=== PATIENT | female | born 1995 | race Caucasian/White ===

== ENCOUNTER 2021-02-23 00:33 | Emergency (ER) | payer OTHER ==
[~2021-02-23] VITALS: Ht 167.6 cm; Wt 63.5 kg
[2021-02-23] MEDS ORDERED: INTESTINEX680 M2 PO (03:00)
[2021-02-23] MEDS ORDERED: AMOX-CLAV 875-1 EACH PO (03:00)
[2021-02-23] MEDS ORDERED: NAPROXEN375 MG PO (03:00)
== END 2021-02-23 03:05 | disposition home or self-care (01) ==
LOC: ER 00:33 → EDBD 00:47 → ER 00:47
DX: S81.821A Laceration with foreign body, right lower leg, initial encounter (principal); W45.8XXA Other foreign body or object entering through skin, initial encounter; Y93.89 Activity, other specified; Y92.098 Other place in other non-institutional residence as the place of occurrence of the external cause; Y99.8 Other external cause status

== ENCOUNTER 2021-03-04 08:36 | Emergency (ER) | payer OTHER ==
[~2021-03-04] VITALS: Ht 167.6 cm; Wt 65.8 kg
[~2021-03-04 08:36] MED LIST: AMOX-CLAV 875-1 EACH PO; INTESTINEX680 M2 PO; NAPROXEN375 MG PO
== END 2021-03-04 11:29 | disposition home or self-care (01) ==
LOC: ER 08:36
DX: Z48.02 Encounter for removal of sutures (principal)

== ENCOUNTER 2021-06-27 05:15 | Day surgery (SDC) | payer OTHER ==
[~2021-06-27 05:15] MED LIST changes: +WELLBUTRIN SR150 MG PO
== END 2021-06-27 10:45 | disposition home or self-care (01) ==
LOC: CIR.AMB 05:15
PROVIDERS: ATTEND Specialist
DX: D17.21 Benign lipomatous neoplasm of skin and subcutaneous tissue of right arm (principal); Z20.822 Contact with and (suspected) exposure to COVID-19

== ENCOUNTER 2021-10-26 22:54 | Emergency (ER) | payer OTHER ==
[~2021-10-26] VITALS: Ht 167.6 cm; Wt 65.8 kg
[2021-10-26] MEDS ORDERED: RITALIN5 M1 (23:32)
[2021-10-27] MEDS ORDERED: LEVSIN/SL0.125 MG SL (03:58)
[2021-10-27] MEDS ORDERED: PEPCID AC20 MG PO (03:58)
[2021-10-27] MEDS ORDERED: CIPRO500 MG PO (03:58)
== END 2021-10-27 04:05 | disposition home or self-care (01) ==
LOC: ER 22:54
DX: K52.9 Noninfective gastroenteritis and colitis, unspecified (principal); R10.9 Unspecified abdominal pain

== ENCOUNTER 2025-06-18 17:16 | Emergency (ER) | payer OTHER ==
[~2025-06-18] VITALS: Ht 170.2 cm; Wt 67.1 kg
[~2025-06-18 17:16] MED LIST changes: +CIPRO500 MG PO; +LEVSIN/SL0.125 MG SL; +PEPCID AC20 MG PO; +RITALIN5 M1
[2025-06-18] MEDS ORDERED: KETOROLAC TROMETHAMINE 60 MG VIAL IM ONE ×2 (18:15→19:19)
[2025-06-18] MEDS ORDERED: LIDOCAINE HCL 1% 10ML VIAL PERCUT ONE (18:15)
[2025-06-18] MEDS ORDERED: TETANUS & DIPHTHERIA TOX,ADULT 0.5 ML VIAL IM ONE (18:15)
[2025-06-18] MEDS ORDERED: CEFTRIAXONE SODIUM 1,000 MG VIAL IM ONE (18:15)
[2025-06-18] MEDS ORDERED: LIDOCAINE HCL 1% 10ML VIAL ONE ×2 (18:41→19:22)
[2025-06-18] MEDS ORDERED: CEFTRIAXONE SODIUM 1,000 MG VIAL ONE (19:20)
[2025-06-18] MEDS ORDERED: DIPHTH,PERTUSS(ACELL),TET VAC 0.5 ML SYRINGE IM ONE (19:20)
[2025-06-18] MEDS ORDERED: CEFUROXIME500 MG PO (19:46)
[2025-06-18] MEDS ORDERED: PEPCID AC20 MG PO (19:46)
== END 2025-06-18 20:28 | disposition home or self-care (01) ==
LOC: ER 17:17
DX: S61.412A Laceration without foreign body of left hand, initial encounter (principal); W26.0XXA Contact with knife, initial encounter; Y93.89 Activity, other specified; Y92.89 Other specified places as the place of occurrence of the external cause; Y99.9 Unspecified external cause status